=== PATIENT | male | born 1970 | race American Indian/Alaskan Native ===

== ENCOUNTER 2017-12-30 16:01 | Emergency (ER) | payer OTHER ==
[2017-12-30 16:21] VITALS: TEMP 98.1
--- NOTE | 2017-12-30 17:15 | ED PDOC ---
Arrival/HPI - General Chief Complaint: Finger,Hand,&Wrist Time Seen by Provider: 12/30/17 17:10 Historian: Patient - History of Present Illness Narrative History of Present Illness (Text): 12/30/17 17:11 This 47 yo male presents to this ED c/o right 4th finger crush injury, pain at work x 2 hours. 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 Denies other complains. Patient is right hand dominant. Time/Duration: 1-3 hours Context: Work Past Medical History - Provider Review Nursing Documentation Reviewed: Yes - Psychiatric Hx Psychophysiologic Disorder: No Hx Substance Use: No Family/Social History - Physician Review Nursing Documentation Reviewed: Yes Family/Social History: Other (noncontributory) Smoking Status: Heavy Smoker > 10 Cigarettes Daily Hx Alcohol Use: Yes Frequency of alcohol use: Socially Hx Substance Use: No Allergies/Home Meds Allergies/Adverse Reactions: Allergies No Known Allergies Allergy (Verified 12/30/17 16:18) Review of Systems - Review of Systems Constitutional: Normal. absent: Fatigue, Weight Change, Fevers Eyes: Normal ENT: Normal Respiratory: Normal. absent: SOB, Cough Cardiovascular: Normal Gastrointestinal: Normal Genitourinary Male: Normal Musculoskeletal: Other (finger injury) Skin: Normal Neurological: Normal Endocrine: Normal Hemo/Lymphatic: Normal Psychiatric: Normal Physical Exam Vital Signs Temp Pulse Resp BP Pulse Ox 12/30/17 18:49 79 18 158/75 H 98 12/30/17 16:20 98.1 F 87 16 168/117 H 96 Temperature: Afebrile Blood Pressure: Normal Pulse: Regular Respiratory Rate: Normal Appearance: Positive for: Well-Appearing, Non-Toxic, Comfortable Pain Distress: None Mental Status: Positive for: Alert and Oriented X 3 - Systems Exam Head: Present: Atraumatic, Normocephalic Mouth: Present: Moist Mucous Membranes Neck: Present: Normal Range of Motion Upper Extremity: Present: Normal ROM, NORMAL PULSES, Neurovascularly Intact, Capillary Refill < 2s, Other ((+) distal right 4th finger tip is mild swollen. (+) right 4th subungual hematoma. (+) mild tenderness on right 3rd finger tip, and moderate tenderness on right 3rd finger tip). No: Cyanosis, Edema Lower Extremity: Present: Normal Inspection, Normal ROM Neurological: Present: GCS=15, CN II-XII Intact, Speech Normal Skin: Present: Warm, Dry, Normal Color. No: Rashes Psychiatric: Present: Alert, Oriented x 3, Normal Insight, Normal Concentration Medical Decision Making ED Course and Treatment: 12/30/17 18:56 Re-evaluation. Patient feels better. Discussed results and plan with patient who expresses understanding. All questions answered and there is agreement with the plan to discharge home with instructions. Patient stable for discharge. Return if symptoms persist or worsen. Patient was recommended to f/u hand doctor in 1-2 days. To call Workers Comp for further referral to hand doctor. RICE. Return to emergency if pain worsen. Use finger splint daily till hand doctor tell pt otherwise. Re-evaluation Time: 18:57 Reassessment Condition: Re-examined, Improved - RAD Interpretation Narrative RAD Interpretations (Text): 12/30/17 18:57 Hand x-rays: (+) right 3rd, and 4th finger distal tuft Fx.4th worsen than 3rd Radiology Orders: 12/30/17 17:10 HAND RIGHT 4TH DIGIT (FINGER) [RAD] Stat - Procedure PROCEDURE NOTE (Text): 12/30/17 18:59 finger splint. Subungual hematoma from right 4th fingernail was decompressed under sterile technique. Patient tolerated procedure well. Disposition/Present on Arrival - Present on Arrival Any Indicators Present on Arrival: No History of DVT/PE: No History of Uncontrolled Diabetes: No Urinary Catheter: No History of Decub. Ulcer: No History Surgical Site Infection Following: None - Disposition Have Diagnosis and Disposition been Completed?: Yes Diagnosis: Subungual hematoma of digit of hand, Closed fracture of tuft of distal phalanx of finger Disposition: HOME/ ROUTINE Disposition Time: 19:00 Patient Plan: Discharge Condition: IMPROVED Discharge Instructions (ExitCare): Finger Fracture Additional Instructions: Call Hand doctor for follow up visit in 2-3 days. You can also call your primary care doctor for revaluation, but you still need to call hand doctor. Ask Worker comp if you are supposed to see their hand doctor. Keep hand elevated, ice, rest, splint. Return to emergency if pain worsen or new symptom arise. Prescriptions: Famotidine [Pepcid] 40 mg PO DAILY #10 tablet Naproxen 500 mg PO BID PRN #14 tablet PRN Reason: Pain, Severe (8-10) Referrals: PCP,NO [Primary Care Provider] - Follow up with primary Parish Banda MD [Staff Provider] - Follow up with primary Forms: [employer] (E[place]ian), WORK NOTE
[2017-12-30 18:50] VITALS: BP 158/75; PULSE 79; RESP 18; O2SAT 98
--- NOTE | 2017-12-31 07:34 | RAD ---
PROCEDURE: Right ring finger radiographs. HISTORY: pain s/p trauma COMPARISON: None. TECHNIQUE: AP radiograph of the right hand, as well as spot oblique and lateral images of ring finger were obtained. FINDINGS: RIGHT RING FINGER: A nondisplaced fracture of the tuft of the distal phalanx right ring finger is identified with limited local soft tissue edema related. A nearly identical fracture is suspected at the tuft of the distal phalanx right long finger as well. No additional fractures appreciated throughout the visualized bones of the right hand in all three views. JOINTS: No subluxation or dislocation. SOFT TISSUES: Normal. OTHER FINDINGS: None. IMPRESSION: Nondisplaced fractures of the royer of the distal phalanges of the ring and long fingers right hand with limited local soft tissue edema. No dislocation.
== END 2017-12-30 19:18 | disposition home or self-care (01) ==
LOC: ED 16:01
DX: S62.634A Displaced fracture of distal phalanx of right ring finger, initial encounter for closed fracture (principal); S60.041A Contusion of right ring finger without damage to nail, initial encounter; W23.0XXA Caught, crushed, jammed, or pinched between moving objects, initial encounter; Y99.0 Civilian activity done for income or pay; F17.210 Nicotine dependence, cigarettes, uncomplicated